=== PATIENT | male | born 1935 | race Caucasian/White ===

== ENCOUNTER 2017-03-24 18:49 | Inpatient (IN) | payer MEDICARE, OTHER ==
--- NOTE | ~2017-03-24 | HP ---
History And Physical [place] [id number] [facility] [place]. [address] NAME: NUSRAT HERRERA : 31 STATUS : ADM IN [facility]#: [id number] AGE: 82 ADM/REG DATE : 03/24/17 MR#: [id number] REPORT SERV DATE: 03/26/17 DICTATED BY: MATIAS AUGUSTIN JR. DATE: 03/26/17 REPORT STATUS : Draft TRANSCRIBED BY: RUSTAM DATE: 03/26/17 DATE OF ADMISSION: 03/24/2017 REASON FOR ADMISSION: COPD exacerbation with spontaneous secondary pneumothorax, right chest, persistent pneumothorax. BRIEF HISTORY: This is an 82-year-old gentleman who was transferred down from [facility] in [place], [place] for a persistent pneumothorax despite chest tube placement for a secondary spontaneous pneumothorax. He was in no distress. It was felt that the patient was likely going to require surgical intervention. We were asked to continue managing his chest tube and his COPD. The patient states on Monday of this week he went to the primary care physician's office for general evaluation and for some stomach complaints. On chest x-ray, he was noted to have a pneumothorax. He was then sent to the emergency room where chest tube was placed and admitted to [facility]. Given there was not complete resolution of pneumothorax by Monday, we were asked to accept him in transfer for further evaluation and treatment options including surgical treatment. He was stable upon arrival to the hospital. PAST MEDICAL HISTORY: Significant for appendectomy and a partial gastrectomy for peptic ulcer disease. He also has known COPD. MEDICATIONS: Home medications include aspirin, Prilosec, and Levaquin while in the hospital. ALLERGIES: PENICILLIN CAUSES RASH. SOCIAL HISTORY: The patient smoked for at least a pack per day for 40 years, he quit 20 years ago. He denies current alcohol or drug use. FAMILY HISTORY: Significant for both parents dying of unexpected malignancies. He does not know of any coronary disease in his family. He has a son, who lives in [place], who is present. He takes care of his who is in wheelchair. REVIEW OF SYSTEMS: Significant for the above-mentioned problems in history of present illness. All other systems are negative. A 12-point system review was performed. PHYSICAL EXAMINATION: GENERAL: An 82-year-old gentleman, alert and oriented x3. HEAD, EYES, EARS, NOSE, AND THROAT: Negative. Pupils are equal, round, reactive to light. Sclerae are nonicteric. NECK: Supple. No bruits noted. CARDIOVASCULAR: Revealed no murmurs or rubs. LUNGS: Bilateral rhonchi. Breath sounds are equal. ABDOMEN: Soft and nontender. EXTREMITIES: Showed no significant edema. NEUROLOGIC: Grossly intact. History And Physical [address] [address] NAME: NUSRAT HERRERA : 31 STATUS : ADM IN [facility]#: [id number] AGE: 82 ADM/REG DATE : 03/24/17 MR#: [id number] REPORT SERV DATE: 03/26/17 DICTATED BY: MATIAS AUGUSTIN JR. DATE: 03/26/17 REPORT STATUS : Draft TRANSCRIBED BY: RUSTAM DATE: 03/26/17 SKIN: Warm and dry. PSYCH: Negative. DATA: CT scan shows a small residual lateral pneumothorax with obvious emphysematous changes of the lung tissue. There is atelectasis in the right lower lobe along the base. There is no abnormal or pathologic mediastinal adenopathy or masses visible. Hemoglobin was 14.5, hematocrit 43.1, platelets 209,000, and white cell count was 10.2. Electrolytes were normal. Creatinine was 0.9. IMPRESSION: 1. Spontaneous secondary pneumothorax with chest tube placed. 2. Chronic obstructive pulmonary disease. 3. Peptic ulcer disease, status post partial gastrectomy. PLAN: We will admit the patient to the hospital for further management of his chest tube. We will follow him over the weekend, and if the lung does not stay up, then we will convert to a surgical procedure. We will perform pleurodesis and resection as indicated. The patient understands the treatment options and the current plan and agrees. All questions were answered. DEEPALI/RUSTAM Matias Augustin Jr., M.D. / [id number] CC: Matias Augustin Jr., M.D.
--- NOTE | ~2017-03-24 | DS ---
Discharge Summary [facility] [address] [place]. [address] NAME: NUSRAT HERRERA : 31 STATUS : DIS IN PAT#: [id number] AGE: 82 ADM/REG DATE : 03/24/17 MR#: [id number] REPORT SERV DATE: 04/04/17 DICTATED BY: MATIAS FAIR JR. DATE: 04/03/17 REPORT STATUS : Draft TRANSCRIBED BY: RUSTAM DATE: 04/03/17 Data Collection from hospitalization DISCHARGE DIAGNOSES: 1. Spontaneous secondary pneumothorax with chest tube placement. 2. Chronic obstructive pulmonary disease. 3. Peptic ulcer disease status post partial gastrectomy. CONSULTATIONS: None. PROCEDURES PERFORMED: CT of the chest without contrast, 03/24/2017. MEDICATIONS: Prilosec 20 mg daily, aspirin 81 mg daily. CONDITION AT DISCHARGE: Upon discharge, he did appear to be doing well and had no complaints. DISPOSITION: He had been discharged home to continue a regular diet with activity as tolerated. He is to follow up with Vince Kumar M.D. in two to three weeks. HOSPITAL COURSE: This 82-year-old male had been transferred from [facility] in [facility] for persistent pneumothorax despite chest tube placed for a secondary spontaneous pneumothorax. He was in no distress. It was felt that the patient was likely going to require surgical intervention. We were asked to continue managing his chest tube and COPD. The patient stated on Monday of this week he went to the primary care physician's office for general evaluation and for some stomach complaints. On chest x-ray, he was noted to have a pneumothorax. He was then sent to the emergency room where chest tube was placed, and he was admitted to [facility]. Given there was not complete resolution of the pneumothorax by Monday, we were asked to accept him in transfer for further evaluation and treatment options including surgical treatment. He was stable upon arrival to the hospital and was admitted for further treatment. Upon admission to the hospital, he had been placed on a regular diet. He was begun on Percocet 5/325 one or two every 4-6 hours as needed for pain, morphine 1-2 mg IV every two hours as needed for severe pain, MiraLAX 17 g daily, Pepcid 40 mg daily as well as bronchodilator protocol, Tylenol 650 mg every 4-6 hours as needed, Dulcolax suppository 10 mg per the rectum as needed, Zofran 4 mg IV every six hours as needed, Flomax 0.4 mg at bedtime, Lovenox 40 mg subcutaneously daily per DVT prophylaxis protocol. Lovenox was to be held on 03/27/2017. Following the day of admission, he denied any shortness of breath or chest pain. His chest tube did reveal an air leak with cough. His lungs did reveal decreased breath sounds in the bases. He was continued on supportive care. He did have an O2 saturation of 93% on room air. On 03/26/2017, he had no complaints and was continued on his current medications. He was to be n.p.o. after midnight in preparation for possible surgery. His chest x-ray had revealed no visible pneumothorax. On 03/27/2017, he was afebrile and his vital signs had remained stable. He was continued on his current medications. His chest tube was removed as a repeat chest x-ray revealed no pneumothorax. He did remain in stable condition and on 03/28/2017, as he was doing well, he was then discharged with the above instructions. Information collected by: Herber Naylor Discharge Summary [address] [address] NAME: NUSRAT HERRERA : 31 STATUS : DIS IN PAT#: [id number] AGE: 82 ADM/REG DATE : 03/24/17 MR#: [id number] REPORT SERV DATE: 04/04/17 DICTATED BY: MATIAS FAIR JR. DATE: 04/03/17 REPORT STATUS : Draft TRANSCRIBED BY: RUSTAM DATE: 04/03/17 I submit the above information as my discharge summary. YOVANI/RUSTAM Matias Fair Jr., M.D. / [id number] CC: Matias Fair Jr., M.D.
[2017-03-24] MEDS ORDERED: ASAB PO (22:12)
[2017-03-24] MEDS ORDERED: PRILO PO (22:12)
[2017-03-24] MEDS ORDERED: *UNABLE1 (22:21)
[2017-03-27 03:18] LABS: BASOPHILS 0.3 %; BASOPHILS ABSOLUTE 0.02 10/3/uL (0.0-0.16); EOSINOPHILS 1.8 %; EOSINOPHILS ABSOLUTE 0.12 10/3/uL (0.0-0.53); HEMATOCRIT 38.8 % (40.0-51.0); HEMOGLOBIN 12.8 g/dL (13.6-17.8); IMMATURE GRANULOCYTES 0.3 %; IMMATURE GRANULOCYTES ABSOLUTE 0.02 10/3/uL (0.0-0.11); LYMPHOCYTES 12.5 %; LYMPHOCYTES ABSOLUTE 0.84 10/3/uL (0.67-4.30); MEAN CORPUSCULAR HEMOGLOB 28.8 pg (26.0-34.0); MEAN CORPUSCULAR VOLUME 87.4 fL (80-100); MEAN PLATELET VOLUME 9.1 fL (9.2-13.0); MONOCYTES ABSOLUTE 1.01 10/3/uL (0.21-1.20); NEUTROPHILS 70.1 %; NEUTROPHILS ABSOLUTE 4.73 10/3/uL (2.02-8.40); PLATELET COUNT 225 10/3/uL (150-400); RBC DISTRIBUTION WIDTH 14.8 % (12.0-16.0); RED CELL COUNT 4.44 10/6/uL (4.7-6.1); WHITE BLOOD CELLS 6.7 10/3/uL (4.5-10.5)
[2017-03-27 03:24] LABS: MANUAL DIFF NO %
[2017-03-27 03:29] LABS: INTERNATIONAL NORMAL RATI 1.1 UNITS (-); PROTIME (NOT ORD) 14.3 SEC (12.0-14.5)
[2017-03-27 03:36] LABS: A/G RATIO 0.6 (0.7-1.9); ALBUMIN 2.3 G/DL (3.5-5.0); ALKALINE PHOSPHATASE 72 U/L (45-117); BUN (BLOOD UREA NITROGEN) 15 MG/DL (6-23); CALCIUM, SERUM 8.1 MG/DL (8.5-10.4); CHLORIDE, SERUM 101 MMOL/L (96-112); CO2 (CARBON DIOXIDE) 30 MMOL/L (24-34); GFR AFRICAN AMERICAN 91 ML/MIN (>=60); GFR NON AFRICAN AMERICAN 78 ML/MIN (>=60); GLOBULIN 3.8 G/DL (2.5-4.1); GLUCOSE, SERUM 88 MG/DL (60-99); SGOT(AST) 19 U/L (5-40); SGPT(ALT) 19 U/L (5-65); SODIUM, SERUM 136 MMOL/L (135-148); TOTAL BILIRUBIN 0.8 MG/DL (0-1.2); TOTAL PROTEIN 6.1 G/DL (6.0-8.5)
[2017-03-28] MEDS ORDERED: PCET PO (08:47)
== END 2017-03-28 11:09 | disposition home or self-care (01) | DRG 191 ==
LOC: 5NO 18:49
PROVIDERS: Nurse Practitioner Adult Health
DX: J44.1 Chronic obstructive pulmonary disease with (acute) exacerbation (principal); J93.12 Secondary spontaneous pneumothorax; Z79.82 Long term (current) use of aspirin; Z87.891 Personal history of nicotine dependence; Z87.11 Personal history of peptic ulcer disease
CPT/HCPCS: 36415; 71020; 71250; 80053; 82962; 83735; 85025; 85610; 86850; 86900; 86901; 86920; 93005; A9270-GY